=== PATIENT | female | born 2005 | race Caucasian/White ===

== ENCOUNTER 2023-06-19 02:42 | Emergency (ER) | payer OTHER, SELFPAY ==
[2023-06-19 02:50] VITALS: BP 134/88; PULSE 72; RESP 18; TEMP 36.8; O2SAT 100
--- NOTE | 2023-06-19 03:24 | ED.URI ---
HPI - URI/Sore Throat General Chief Complaint: Upper Respiratory Symptoms Stated Complaint: ear pain, head cold Time Seen by Provider: 06/19/23 03:08 Source: patient Mode of arrival: Ambulatory History of Present Illness HPI Narrative: Patient is a 17-year-old female who presents today with left ear pain. She reports that she and her boyfriend both have had some sort of head cold. She reports significant headache a couple days ago was having some right ear pain and tonight woke up with severe left-sided ear pain she feels significant pressure behind it. He had a negative COVID test a couple days ago. She denies any chest pain or shortness of breath. She took NyQuil unfortunately went to sleep which usually helps Related Data Previous Rx's Medication Instructions Recorded amoxicillin 875 mg tablet 875 mg PO BID #10 tabs 06/19/23 Allergies Allergy/AdvReac Type Severity Reaction Status Date / Time No Known Drug Allergies Allergy Verified 06/19/23 03:56 Review of Systems Review of Systems ROS Unobtainable: All systems reviewed & are unremarkable except as noted in HPI and below Patient History Social History Smoking Status: Never smoker Smoking Status: Never smoker Substance Use Type: does not use Exam Initial Vital Signs Initial Vital Signs: Vital Signs Temperature 98.3 F 06/19/23 02:50 Pulse Rate 72 06/19/23 02:50 Respiratory Rate 18 06/19/23 02:50 Blood Pressure 134/88 06/19/23 02:50 Pulse Oximetry 100 06/19/23 02:50 Oxygen Delivery Method Room Air 06/19/23 02:50 GENERAL: Well-appearing 17-year-old female and in no acute distress. HEENT: Head atraumatic,EOMI, pupils reactive, face symmetric, moist mucous membranes EARS: Right: Mild irritation to the right canal but membrane itself is non erythematous nonbulging intact Left: Blood in can now membrane is intact obvious bulging CARDIOVASCULAR: Regular rate and rhythm without murmurs, rubs or gallops. RESPIRATORY: Breath sounds equal bilaterally, no wheezes rales or rhonchi. EXTREMITIES: Normal range of motion, no clubbing or edema. Neurovascularly intact NEUROLOGICAL: Alert and oriented x4. SKIN: Warm, dry, no laceration, no petechiae, no rashes or lesions. Course Orders Ordered: ED Orders 06/19/23 02:50 Covid-19 + FLU A/B + RSV - PCR Stat Discontinued Medications Ibuprofen (Ibuprofen 400 Mg Tablet) 800 mg PO NOW ONE Stop: 06/19/23 03:50 Last Admin: 06/19/23 04:00 Dose: 800 mg Documented By: KATHRYN Vital Signs Vital signs: Vital Signs - 8 hr 06/19/23 02:50 Temperature 98.3 F Pulse Rate 72 Respiratory Rate 18 Blood Pressure 134/88 Pulse Oximetry 100 Oxygen Delivery Method Room Air MDM - URI/Sore Throat Lab Data Labs: Lab Results 06/19/23 Range/Units 02:50 SARS-CoV-2 (PCR) Negative (Negative) Influenza A (RT-PCR) Flu a negative (NEGATIVE) Influenza B (RT-PCR) Flu b negative (NEGATIVE) RSV (PCR) Negative (Negative) MDM Narrative Medical decision making narrative: Patient healthy 17-year-old female who presents today with upper respiratory like symptoms bilateral ear pain and pressure today suddenly worse on the left. She does have some blood in her canal membrane is definitely bulging mildly erythematous. Reasonable to start her on antibiotics. Her viral panel is negative. She otherwise appears healthy no evidence of sepsis no need for any further workup. Discharge Plan Departure Patient Disposition: Home Clinical Impression: Otitis media Instructions: Middle Ear Infection Activity Restrictions/Additional Instructions: *You have been diagnosed with ear infection *What to do: At this time COVID influenza RSV are negative. You likely have another upper respiratory like virus however left ear also looks infected *Continue to take medications as directed Amoxicillin 875 mg twice a day for 5 days *Follow up with your primary care provider in 2-3 days or call [phone] *Return to ER if you should have increasing pain fever headache not tolerating fluids or any new, worsening or concerning symptoms Prescriptions: New amoxicillin 875 mg tablet 875 mg PO BID Qty: 10 0RF Referrals: Abiola Levin DO [Primary Care Provider] - Stand Alone Forms: Patient Portal/API, Work Release Note
[2023-06-19] MEDS: IBUPROFEN 400 MG TABLET 800 MG PO (04:00)
[2023-06-19 04:34] LABS: Influenza A - CEPHEID Flu A NEGATIVE (NEGATIVE); Influenza B - CEPHEID Flu B NEGATIVE (NEGATIVE); Respiratory Syncytial Virus Negative (Negative)
[2023-06-19 04:35] LABS: COVID-19 CEPHEID 4-PLEX PCR Negative (Negative)
[2023-06-19 05:00] VITALS: BP 109/63; PULSE 63; RESP 16; TEMP 36.8; O2SAT 100
== END 2023-06-19 05:00 | disposition home or self-care (01) ==
PROVIDERS: Emergency Provider Emergency Medicine; PCP Family Medicine
DX: H66.92 Otitis media, unspecified, left ear (principal)
CPT/HCPCS: 0241U; 99283